=== PATIENT | male | born 1970 | race American Indian/Alaskan Native ===

== ENCOUNTER 2020-07-15 04:00 | Emergency (ER) | payer SELFPAY ==
[2020-07-15] MEDS ORDERED: ASPIRIN 325 MG TAB PO ONE (04:39)
--- NOTE | 2020-07-15 05:31 | XRay Report ---
CHEST 1 VIEW 07/15/2020 4:06 AM INDICATION / CLINICAL INFORMATION: Chest Pain. COMPARISON: None available. FINDINGS: SUPPORT DEVICES: None. HEART / MEDIASTINUM: No significant abnormality. LUNGS / PLEURA: No significant pulmonary or pleural abnormality. No pneumothorax. ADDITIONAL FINDINGS: No significant additional findings. IMPRESSION: 1. No acute findings. Signer Name: Ray Galan MD Signed: 07/15/2020 5:26 AM Workstation Name: [id number]
[2020-07-15 05:58] LABS: Basophils % (Auto) 0.6 % (0.0-1.8); Eosinophils # (Auto) 0.2 K/mm3 (0.0-0.4); Eosinophils % (Auto) 3.3 % (0.0-4.3); Hematocrit 39.4 % (35.5-45.6); Hemoglobin 13.1 gm/dl (11.8-15.2); Lymphocytes # (Auto) 1.3 K/mm3 (1.2-5.4); Lymphocytes % (Auto) 24.8 % (13.4-35.0); Mean Corpuscular HGB Conc 33 % (32-34); Mean Corpuscular Volume 90 fl (84-94); Monocytes # (Auto) 0.5 K/mm3 (0.0-0.8); Monocytes % (Auto) 9.1 % (0.0-7.3); Platelet Count 255 K/mm3 (140-440); Red Blood Count 4.39 M/mm3 (3.65-5.03); Red Cell Distribution Width 13.9 % (13.2-15.2)
[2020-07-15 06:13] LABS: BUN/Creatinine Ratio 11; Blood Urea Nitrogen 13 mg/dL (9-20); Calcium 9.2 mg/dL (8.4-10.2); Hemolysis Index 3
--- NOTE | 2020-07-15 06:13 | Emergency Department Report ---
ED Chest Pain HPI - General Chief Complaint: Chest Pain Stated Complaint: CHEST PAIN Time Seen by Provider: 07/15/20 06:12 Source: patient, EMS Mode of arrival: Stretcher Limitations: No Limitations - History of Present Illness Initial Comments: This is a 50-year-old man who states that he "called [facility]" and that he is homeless. Apparently EMS responded to the scene whereupon he was complaining of chest pain. He stated that he had chest pain which was sharp brief and intermittent. He was given nitroglycerin and aspirin by paramedics. Patient tells me that he feels fine now and would just like some crackers. He states that he would like to get some rest. Initially nurses and secretarial staff informed me that he refused EKG and blood work. He finally allowed blood work but not the EKG. EKG was hours delayed due to patient noncompliance. At the time of my encounter he is nonetheless largely cooperative. He is not complaining of chest pain. Is not complaining of shortness of breath. He states he has some nausea but did not throw up. He admits to cocaine abuse 2 days ago but denies any recent use. MD Complaint: chest pain -: Gradual, minutes(s) Onset: during rest Pain Location: left chest Pain Radiation: none Severity: moderate Quality: sharp Improves With: nothing Worsens With: nothing re: nausea. denies: vomting, diaphoresis, dyspnea, sense of impending doom Other Symptoms: denies: cough, fever, syncope Aspirin use within the Past 7 Days: (0) No - Related Data Allergies Allergy/AdvReac Type Severity Reaction Status Date / Time Penicillins Allergy Swelling Verified 07/15/20 04:21 Heart Score - HEART Score History: Slightly suspicious EKG: Normal Age: 45-65 Risk factors: 1-2 risk factors Troponin: < normal limit HEART Score: 2 - Critical Actions Critical Actions: 0-3 pts:0.9-1.7%risk of adverse cardiac event.Candidate for discharge ED Review of Systems ROS: Stated complaint: CHEST PAIN Other details as noted in HPI Constitutional: denies: chills, fever Eyes: denies: eye pain, eye discharge, vision change ENT: denies: ear pain, throat pain Respiratory: denies: cough, shortness of breath, wheezing Cardiovascular: chest pain. denies: palpitations Endocrine: no symptoms reported Gastrointestinal: denies: abdominal pain, nausea, diarrhea Genitourinary: denies: urgency, dysuria Musculoskeletal: denies: back pain, joint swelling, arthralgia Skin: denies: rash, lesions Neurological: denies: headache, weakness, paresthesias Psychiatric: denies: anxiety, depression Hematological/Lymphatic: denies: easy bleeding, easy bruising ED Past Medical Hx - Past Medical History Previous Medical History?: Yes Hx Hypertension: No Hx Heart Attack/AMI: Yes Hx Congestive Heart Failure: Yes Hx Diabetes: Yes Hx Asthma: Yes Hx HIV: No - Surgical History Past Surgical History?: Yes Additional Surgical History: stent placement 2019 - Social History Smoking Status: Current Every Day Smoker Substance Use Type: Other ED Physical Exam - General Limitations: No Limitations General appearance: alert, in no apparent distress - Head Head exam: Present: atraumatic, normocephalic - Eye Eye exam: Present: normal appearance. Absent: scleral icterus - ENT ENT exam: Present: mucous membranes moist - Neck Neck exam: Present: normal inspection - Respiratory Respiratory exam: Present: normal lung sounds bilaterally. Absent: respiratory distress - Cardiovascular Cardiovascular Exam: Present: regular rate, normal rhythm. Absent: systolic murmur, diastolic murmur, rubs, gallop - GI/Abdominal GI/Abdominal exam: Present: soft, normal bowel sounds. Absent: distended, tenderness, guarding, rebound, rigid - Rectal Rectal exam: Present: deferred - Extremities Exam Extremities exam: Present: normal inspection - Back Exam Back exam: Present: normal inspection - Neurological Exam Neurological exam: Present: alert, oriented X3, CN II-XII intact. Absent: motor sensory deficit - Psychiatric Psychiatric exam: Present: normal affect, normal mood - Skin Skin exam: Present: warm, dry, intact, normal color. Absent: rash ED Course Vital Signs 07/15/20 07/15/20 07/15/20 04:13 07:31 07:41 Temperature 97.9 F Pulse Rate 83 65 Respiratory 20 17 16 Rate Blood Pressure 132/88 126/78 Blood Pressure 132/88 [Left] O2 Sat by Pulse 100 99 97 Oximetry 07/15/20 07/15/20 07:45 07:48 Temperature Pulse Rate 71 64 Respiratory 19 16 Rate Blood Pressure 126/78 Blood Pressure 126/68 [Left] O2 Sat by Pulse 99 99 Oximetry - Reevaluation(s) Reevaluation #1: Patient has remained in some symptomatic. He is appropriate for outpatient disposition. 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 Obviously he should avoid substance abuse. 07/15/20 08:32 ROLO score - Rolo Score Age > 65: (0) No Aspirin use within the Past 7 Days: (0) No 3 or more CAD Risk Factors: (0) No 2 or more Angina events in past 24 hrs: (0) No Known CAD with more than 50% Stenosis: (0) No Elevated Cardiac Markers: (0) No ST Deviation Greater than 0.5mm: (0) No ROLO Score: 0 ED Medical Decision Making - Lab Data Result diagrams: 07/15/20 05:36 07/15/20 05:36 Laboratory Results - last 24 hr 07/15/20 07/15/20 05:36 05:36 WBC 5.2 RBC 4.39 Hgb 13.1 Hct 39.4 MCV 90 MCH 30 MCHC 33 RDW 13.9 Plt Count 255 Lymph % (Auto) 24.8 [place] % (Auto) 9.1 H Eos % (Auto) 3.3 Baso % (Auto) 0.6 Lymph # 1.3 [place] # 0.5 Eos # 0.2 Baso # 0.0 Seg Neutrophils % 62.2 Seg Neutrophils # 3.2 Sodium 142 Potassium 4.2 Chloride 104.2 Carbon Dioxide 26 Anion Gap 16 BUN 13 Creatinine 1.2 Estimated GFR > 60 BUN/Creatinine Ratio 11 Glucose 88 Calcium 9.2 Troponin T < 0.010 - EKG Data -: EKG Interpreted by De EKG shows normal: sinus rhythm, axis, intervals, QRS complexes, ST-T waves Rate: normal - EKG Data Interpretation: no acute changes, other (Early repolarization pattern, no reciprocal changes) - Radiology Data Radiology results: report reviewed, image reviewed (No acute process) Critical care attestation.: If time is entered above; I have spent that time in minutes in the direct care of this critically ill patient, excluding procedure time. ED Disposition Clinical Impression: Atypical chest pain Disposition: DC-01 TO HOME OR SELFCARE Is pt being admited?: No Does the pt Need Aspirin: No Condition: Stable Instructions: Chest Pain (ED), Cocaine Abuse (ED) Additional Instructions: Return to the emergency department any recurrent chest pain or acute change as needed. Follow-up with [facility]. 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 Referrals: EZ COOPER MD [Primary Care Provider] - 2-3 Days LEXI KELLEY MD [Staff Physician] - 3-5 Days Forms: AMA Form Time of Disposition: 08:33
[2020-07-15 08:06] LABS: Creatine Kinase MB 5.7 ng/mL (0.0-4.0)
[2020-07-15 08:51] VITALS: BP 123/73
== END 2020-07-15 08:42 | disposition home or self-care (01) ==
LOC: ED 04:00
DX: R07.89 Other chest pain (principal); I25.2 Old myocardial infarction; I50.9 Heart failure, unspecified; E11.9 Type 2 diabetes mellitus without complications; J45.909 Unspecified asthma, uncomplicated; F17.200 Nicotine dependence, unspecified, uncomplicated; Z88.0 Allergy status to penicillin
CPT/HCPCS: 36415; 71045; 80048; 82550; 82553; 84484; 85025; 93005